=== PATIENT | female | born 2000 | race Caucasian/White ===

== ENCOUNTER 2019-06-02 11:33 | Day surgery (SDC) | payer OTHER ==
[2019-06-02 12:11] VITALS: BMI 25.8
[2019-06-02] MEDS ORDERED: FLU VACC QS2019-20(6MOS UP)/PF 60 MCG/0.5 ML SYRINGE IM ONE (12:15)
[2019-06-02] MEDS ORDERED: hydrALAZINE 20 MG/ML VIAL SLOW IVP PRN ×2 (13:36)
[2019-06-02 14:03] LABS: Hemoglobin 12.2 g/dL (12.0-16.0); Mean Corpuscular HGB CONC 33.9 g/dL (32.0-36.0); Mean Corpuscular Hemoglobin 31.4 pg (25.0-35.0); Mean Corpuscular Volume 92.7 fL (78.0-98.0); Mean Platelet Volume 8.1 fL (7.4-10.4); Platelet Count 236 thou/uL (130-400); RBC Distribution Width 12.5 % (11.5-14.5); Red Blood Cell (RBC) Count 3.88 mill/uL (4.00-5.20); White Blood Cell (WBC) Count 7.2 thou/uL (4.8-10.8)
[2019-06-02 14:40] LABS: Syphilis Antibody Nonreactive (Nonreactive); Syphilis Antibody Index 0.05 S/CO (<1.00 Non-Reactive)
[2019-06-02 14:42] LABS: HBSAg Index 0.25 S/CO (0-0.99); HIV (1/2) Antibody/Antigen Non-Reactive (NonReactive); HIV 1/2 INDEX 0.05 S/CO (<1.00); Hep B Surf Ag Non-Reactive S/CO (NonReactive)
[2019-06-02 16:04] LABS: Amphetamine Not Detected (NotDetected); Barbiturates Screen Not Detected (NotDetected); Benzodiazepine Screen Not Detected (NotDetected); Cocaine Metabolite Screen Not Detected (NotDetected); Medtox Control Line Valid? VALID (VALID); Medtox Reader # READER 1; Methadone Not Detected (NotDetected); Methamphetamine Not Detected (NotDetected); Opiate Screen Not Detected (NotDetected); Oxycodone Screen Not Detected (NotDetected); Phencyclidine (PCP) Not Detected (NotDetected); THC/Cannabinoid Screen Not Detected (NotDetected); Tricyclic Screen Not Detected (NotDetected)
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
--- NOTE | 2019-06-02 16:08 | ULT ---
OB ULTRASOUND: HISTORY: No care. FINDINGS: A single live intrauterine gestation is seen with measurements corresponding to an estimated gestatio nal age of 20 weeks 2 days and an TL of 10/18/2019. Estimated weight measures 358 g or 13 oz (16the percentile by Hadlock criteria). measurements are as follows: BPD: 4.49 cm (19 weeks 4 days) HC: _17.25cm (19 weeks 6 days) AC: 15.91 cm (21 weeks 0 days) FL: 3.35 cm (20 weeks 3 days) heart rate measures 143 beats per minute. SKIP measures 11.8 cm. Placenta is anteriorly located without evidence of placenta previa. Three vessel cord, cord insertion, kidneys, bladder, cerebellum, lateral ventricles, spine, fou r chamber heart, stomach, nose/lips are visualized. No definite anomalies are seen. IMPRESSION: Single live intrauterine at 20 weeks' 2 days' estimated gestational age and an estimated da te of delivery of 10/18/2019. POS: OFF
== END 2019-06-02 15:40 | disposition home or self-care (01) ==
LOC: L&D/OP 11:33
DX: O36.8120 Decreased fetal movements, second trimester, not applicable or unspecified (principal); O99.89 Other specified diseases and conditions complicating pregnancy, childbirth and the puerperium; R10.9 Unspecified abdominal pain; Z3A.20 20 weeks gestation of pregnancy
CPT/HCPCS: 36415; 76805; 80306; 85027; 86762; 86780; 86850; 86900; 86901; 87340; 87389; 99282

== ENCOUNTER 2019-08-23 09:33 | Outpatient (CLI) | payer OTHER ==
--- NOTE | 2019-08-23 10:07 | ULT ---
EXAM: OB ultrasound and umbilical artery ultrasound COMPARISON: None HISTORY: Intrauterine growth retardation TECHNIQUE: Multiplanar grayscale and color Doppler images were obtained in a transabdominal ult rasound. Spectral analysis of the Doppler waveforms of the umbilical artery were performed. FINDINGS: There is a single live intrauterine with heart rate of 138 bpm. A survey wa s performed which is unremarkable. The head, intracranial structures, heart, stomach, kidneys, umbilical cord, umbilical cord insertion, spine, face, and extremities were evaluated and were unrema rkable. Estimated weight is 1745 g. Average age of the fetus based off today's examination is 31 weeks 5 days. BPD 7.90 cm -- 31 weeks 5 days HC 29.22 cm -- 32 weeks 2 days AC 26.50 cm -- 30 weeks 5 days FL 6.19 cm -- 32 weeks 1 day The placenta is anterior in location without focal abnormality. SKIP is 10.38 cm which is normal. The cervix is normal in length. There is no evidence of placenta previa. Interrogation of the umbilical artery shows persistent diastolic flow with normal systolic to diastol ic ratio. IMPRESSION: 1. Single live intrauterine with estimated age of 31 weeks 5 days 2. Normal umbilical artery ultrasound.
== END 2019-08-23 09:34 | disposition home or self-care (01) ==
LOC: BICULT 09:33
PROVIDERS: ATTEND Family Medicine
DX: O36.5930 Maternal care for other known or suspected poor fetal growth, third trimester, not applicable or unspecified (principal); Z3A.31 31 weeks gestation of pregnancy
CPT/HCPCS: 76815; 93975

== ENCOUNTER 2019-10-13 14:35 | Inpatient (IN) | payer OTHER ==
[2019-10-14] MEDS ORDERED: Lidocaine 1% (PF) 30 ML VIAL SC PRN (04:21)
[2019-10-14] MEDS ORDERED: Misoprostol 200 MCG TAB PR PRN (04:21)
[2019-10-14] MEDS ORDERED: Diphenoxylate HCl/Atropine Tablet PO PRN (04:21)
[2019-10-14] MEDS ORDERED: Butorphanol Tartrate 1 MG/ML VIAL SLOW IVP PRN (04:21)
[2019-10-14] MEDS ORDERED: NS / Oxytocin 40 units/1000ml 1,000 ML IV PRN (04:21)
[2019-10-14] MEDS ORDERED: Ondansetron PF 4 MG/2 ML Vial IVP PRN ×3 (04:21→17:04)
[2019-10-14] MEDS ORDERED: HYDROcodone/Acetaminophen 5/325 mg Tablet PO PRN (04:21)
[2019-10-14] MEDS ORDERED: Carboprost 250 MCG/ML AMP IM PRN (04:21)
[2019-10-14] MEDS ORDERED: NS w/ Oxytocin 10 units 500 ML IV SCH (04:21)
[2019-10-14] MEDS ORDERED: hydrALAZINE 20 MG/ML VIAL SLOW IVP PRN ×2 (04:21→17:04)
[2019-10-14] MEDS ORDERED: Promethazine HCl 25 MG/ML VIAL IM PRN ×3 (04:21→17:04)
[2019-10-14] MEDS ORDERED: Methylergonovine 0.2 MG/ML VIAL IM PRN (04:21)
[2019-10-14] MEDS ORDERED: Ibuprofen 800 MG TAB PO PRN (04:21)
[2019-10-14 04:40] VITALS: BMI 31.8
[2019-10-14] MEDS: Lactated Ringer's 1,000 ML IV SCH ×4 (04:50→14:54)
[2019-10-14 05:04] LABS: Hemoglobin 11.7 g/dL (12.0-16.0); Mean Corpuscular HGB CONC 32.5 g/dL (32.0-36.0); Mean Corpuscular Hemoglobin 30.2 pg (25.0-35.0); Mean Platelet Volume 8.9 fL (7.4-10.4); Platelet Count 244 thou/uL (130-400); RBC Distribution Width 11.9 % (11.5-14.5); Red Blood Cell (RBC) Count 3.88 mill/uL (4.00-5.20); White Blood Cell (WBC) Count 10.3 thou/uL (4.8-10.8)
[2019-10-14] MEDS: Misoprostol 100 MCG TAB PO SCH (05:04)
[2019-10-14 05:43] LABS: HBSAg Index 0.27 S/CO (0-0.99); Hep B Surf Ag Non-Reactive S/CO (NonReactive)
[2019-10-14 05:44] LABS: Syphilis Antibody Nonreactive (Nonreactive); Syphilis Antibody Index 0.05 S/CO (<1.00 Non-Reactive)
[2019-10-14] MEDS ORDERED: Penicillin G Potassium 5 MILL.UNITS VIAL ONE (08:51)
[2019-10-14] MEDS ORDERED: Sodium Chloride 0.9% 100 ML ONE (08:52)
[2019-10-14] MEDS: NS w/ Oxytocin 10 units 500 ML IV SCH (09:52)
[2019-10-14] MEDS ORDERED: Fentanyl 4 mcg/Bup 0.1% Cadd 100 ML ONE (11:22)
[2019-10-14] MEDS ORDERED: Fentanyl 100 MCG/2 ML VIAL ONE (11:42)
[2019-10-14] MEDS ORDERED: Bupivacaine 0.5% 10 ML VIAL ONE (11:42)
[2019-10-14] MEDS ORDERED: Fentanyl 100 MCG/2 ML VIAL I-THECAL ONE (12:12)
[2019-10-14] MEDS ORDERED: diphenhydrAMINE 50 MG/ML VIAL IVP PRN (12:13)
[2019-10-14] MEDS ORDERED: Bupivacaine 0.25% 10 ML VIAL EPIDURAL ONE (12:13)
[2019-10-14] MEDS ORDERED: Acetaminophen 325 MG TAB PO PRN (12:13)
[2019-10-14] MEDS ORDERED: Naloxone HCl 0.4 mg/ml Vial IVP PRN ×2 (12:13)
[2019-10-14] MEDS ORDERED: Lactated Ringer's 500 ML IV PRN (12:13)
[2019-10-14] MEDS ORDERED: EPHEDRINE 25 MG/5 ML SYRINGE SLOW IVP PRN (12:13)
[2019-10-14] MEDS ORDERED: Communication Order-Pharmacy FS SCH (12:15)
[2019-10-14] MEDS ORDERED: Fentanyl 4 mcg/Bupivacaine 0.1% Cassette 100 ML EPIDURAL SCH (12:15)
[2019-10-14] MEDS ORDERED: Penicillin G 2.5 MILL.units 50 ML ONE (12:38)
[2019-10-14] MEDS ORDERED: Lidocaine 1.5%/Epinephrine 1:200,000 5 ML AMPUL IJ ONE (13:14)
[2019-10-14] MEDS ORDERED: NS / Oxytocin 40 units/1000ml 1,000 ML ONE (15:45)
[2019-10-14] MEDS ORDERED: Lidocaine 1% (PF) 30 ML VIAL ONE (15:45)
[2019-10-14] MEDS ORDERED: Lanolin Ointment 7 GM TUBE TOP PRN (17:04)
[2019-10-14] MEDS ORDERED: Preparation H Ointment 28 GM TUBE PR PRN (17:04)
[2019-10-14] MEDS ORDERED: diphenhydrAMINE 25 MG CAP PO PRN (17:04)
[2019-10-14] MEDS ORDERED: Milk Of Magnesia 30 ML UDCUP PO PRN (17:04)
[2019-10-14] MEDS ORDERED: Benzocaine-Menthol 82.5 ML CAN TOP PRN (17:04)
[2019-10-14] MEDS ORDERED: Bisacodyl 10 MG SUPP PR PRN (17:04)
[2019-10-14] MEDS ORDERED: NS / Oxytocin 40 units/1000ml 1,000 ML IV SCH (17:15)
[2019-10-15] MEDS ORDERED: HYDROcodone/Acetaminophen 5/325 mg Tablet PO PRN ×2 (00:46→00:47)
[2019-10-15] MEDS: Docusate Calcium (SURFAK) 240 MG CAP PO SCH ×3 (00:53→22:55)
[2019-10-15] MEDS: Ibuprofen 800 MG TAB PO SCH ×4 (00:53→22:55)
[2019-10-15] MEDS: Misoprostol 100 MCG TAB PO SCH ×4 (04:56→22:08)
[2019-10-15 06:44] LABS: Mean Corpuscular HGB CONC 33.8 g/dL (32.0-36.0); Mean Corpuscular Volume 94.6 fL (78.0-98.0); Mean Platelet Volume 8.7 fL (7.4-10.4); Platelet Count 217 thou/uL (130-400); RBC Distribution Width 12.1 % (11.5-14.5); Red Blood Cell (RBC) Count 3.44 mill/uL (4.00-5.20); White Blood Cell (WBC) Count 13.3 thou/uL (4.8-10.8)
[2019-10-15] MEDS: NS w/ Oxytocin 10 units 500 ML IV SCH (06:45)
[2019-10-15] MEDS: Ferrous Sulfate 325 MG TAB PO SCH ×2 (07:35→16:47)
[2019-10-15] MEDS ORDERED: Adacel (T-DAP) 0.5 ML SYRINGE IM ONE (09:00)
[2019-10-15] MEDS: Prenatal Vitamin 1 TAB PO SCH (09:33)
[2019-10-15] MEDS: Lactated Ringer's 1,000 ML IV SCH ×2 (11:37→22:08)
[2019-10-16] MEDS: Lactated Ringer's 1,000 ML IV SCH (04:23)
[2019-10-16] MEDS: Misoprostol 100 MCG TAB PO SCH ×4 (04:23→09:15)
[2019-10-16] MEDS: NS w/ Oxytocin 10 units 500 ML IV SCH (04:23)
[2019-10-16] MEDS: Ibuprofen 800 MG TAB PO SCH (06:38)
[2019-10-16] MEDS: Ferrous Sulfate 325 MG TAB PO SCH (07:31)
[2019-10-16 08:35] VITALS: TEMP 98
[2019-10-16] MEDS: Prenatal Vitamin 1 TAB PO SCH (09:14)
[2019-10-16] MEDS: Docusate Calcium (SURFAK) 240 MG CAP PO SCH (09:14)
[2019-10-16 12:08] VITALS: BP 123/83
== END 2019-10-16 14:20 | disposition home or self-care (01) | DRG 807 ==
LOC: L&D 10-14 03:27 → 3SW 10-15 00:23
PROVIDERS: ADMIT Family Medicine; ATTEND Family Medicine
PROC: 10E0XZZ Delivery of Products of Conception, External Approach (ICD-10-PCS; principal; 2019-10-14)
PROC: 0W8NXZZ Division of Female Perineum, External Approach (ICD-10-PCS; 2019-10-14)
PROC: 10907ZC Drainage of Amniotic Fluid, Therapeutic from Products of Conception, Via Natural or Artificial Opening (ICD-10-PCS; 2019-10-14)
PROC: 3E0P7VZ Introduction of Hormone into Female Reproductive, Via Natural or Artificial Opening (ICD-10-PCS; 2019-10-14)
PROC: 3E033VJ Introduction of Other Hormone into Peripheral Vein, Percutaneous Approach (ICD-10-PCS; 2019-10-14)
DX: O99.824 Streptococcus B carrier state complicating childbirth (principal); Z37.0 Single live birth; O99.344 Other mental disorders complicating childbirth; F32.9 Major depressive disorder, single episode, unspecified; Z3A.39 39 weeks gestation of pregnancy
CPT/HCPCS: 36415; 36416; 51702; 85027; 86780; 86850; 86900; 86901; 87340; J0595; J2001; J2540; J2590; J3010; J3490